=== PATIENT | female | born 1950 | race Caucasian/White ===

== ENCOUNTER 2017-10-04 13:46 | Inpatient (IN) | payer OTHER, MEDICARE ==
[~2017-10-04] VITALS: Ht 160 cm; Wt 72.9 kg
[2017-10-04] MEDS ORDERED: SODIUM CHLORIDE 0.9% 500ML 500 ML IV STA (14:06)
[2017-10-04] MEDS ORDERED: ONDANSETRON INJ 2 MG/ML 2 ML VIAL IV STA ×2 (14:06→15:22)
[2017-10-04] MEDS ORDERED: MoRPHine SULFATE 4 MG/ML 1 ML CARP\\VIAL IV STA ×2 (14:06→15:22)
--- NOTE | 2017-10-04 14:08 | EMERGENCY ROOM VISIT NOTE ---
History Report prepared by Jeffery: Eliu Zurita Under the Supervision of: Dr. Mc Phipps M.D. First contact with patient: 13:52 Chief Complaint: ABDOMINAL PAIN Stated Complaint: SEVERE ABD PAIN History of Present Illness The patient is a 67 year old female who presents to the Emergency Room with complaints of abdominal pain that began last evening. Associated with nausea, vomiting and decreased bowel movement this morning. No fevers, chills, cp, sob , uti symptoms, renal issues nor other symptoms. No falls/injuries. She has history of hysterectomy 20 yrs ago. No previous pain like this. No history of SBO. No history of kidney stones. Denies previous appendectomy nor cholecystectomy. History of dyslipidemia. No medications prior to arrival. Nothing makes better. Sitting up makes worse. Source of History: patient Onset: 2 hours ago Position: abdomen Timing: waxes/wanes Associated Symptoms: + nausea, + vomiting, + abdominal pain Review of Systems See HPI for pertinent positives & negatives. A total of 10 systems reviewed and were otherwise negative. Past Medical & Surgical Medical Problems: (1) Dyslipidemia (2) History of endometrial cancer Surgical Problems: (1) History of hysterectomy (2) Hx of hysterectomy (3) Hx of tubal ligation Social History Smoking Status: Never Smoker Current/Historical Medications Scheduled Calcium Carbonate-Cholecalcife (Caltrate 600+D), 1 TAB PO DAILY Magnesium Oxide (Mag-Ox), 400 MG PO DAILY Melatonin (Melatonin), 1 TAB PO HS Pravastatin Sodium (Pravachol), 40 MG PO DAILY Allergies Coded Allergies: No Known Allergies (Unverified , 10/04/17) Physical Exam Vital Signs Date Time Temp Pulse Resp B/P (MAP) Pulse Ox O2 Delivery O2 Flow Rate FiO2 10/04/17 13:49 36.8 75 16 174/88 97 Room Air Physical Exam GENERAL: Patient is uncomfortable and nauseated appearing and in moderate distress. HEENT: No acute trauma, normocephalic atraumatic, mucous membranes moist, no nasal congestion, no scleral icterus. NECK: No stridor, no adenopathy, no meningismus, trachea is midline. LUNGS: No dyspnea. Clear to auscultation and equal bilaterally. No wheeze, no rhonchi. HEART: Regular rate and rhythm. No murmurs, rubs, gallops appreciated. ABDOMEN: Soft, bowel sounds positive, no masses appreciated, no peritonitis. Tenderness to palpation of bilateral lower abdomen. BACK: No midline tenderness, no CVA tenderness EXTREMITIES: Normal motion all extremities, no cyanosis, no edema. NEUROLOGIC: Alert and oriented, no acute motor or sensory deficits, no focal weakness, cranial nerves grossly intact. SKIN: No rash, no jaundice, no diaphoresis. Medical Decision & Procedures ER Provider Diagnostic Interpretation: Radiology results and stated below per my review and radiologist interpretation: ABDOMEN AND PELVIS CT WITH IV CONTRAST CT DOSE: 718.48 mGycm HISTORY: lower abdominal pain, vomiting TECHNIQUE: Multiaxial CT images of the abdomen and pelvis were performed following the use of intravenous contrast. A dose lowering technique was utilized adhering to the principles of ALARA. COMPARISON STUDY: None. FINDINGS: Linear densities at the left lung base consistent with subsegmental atelectasis. No pneumoperitoneum. No pneumatosis. No fractures within the visualized osseous structures. A 5 mm hypodense lesion within the right hepatic lobe. This is too small to characterize. The gallbladder, spleen, adrenal glands, and pancreas are unremarkable. No hydronephrosis. Calcified plaque throughout the normal caliber abdominal aorta. No retroperitoneal lymphadenopathy. The uterus is surgically absent. Normal bladder. Colonic diverticulosis. Focally distended loop of distal ileum within the right lower quadrant with mild surrounding inflammatory change. Small amount of fluid within the right deep pelvis. Focal high-grade transition of the terminal ileum best seen on image 328. This is likely due to an adhesion and is consistent with a small bowel obstruction. Normal appendix. There may mild thickening of the distal ileal loops on image 263. However, this could be due to decompression. IMPRESSION: Developing small bowel obstruction with the high-grade transition point at the distal ileum, likely due to an adhesion. The distal ileal loop demonstrates mild surrounding inflammatory change and may also demonstrate mild thickening. There is also small amount of fluid within the right lower quadrant. This raises the possibility of vascular compromise. However, there is no pneumatosis. Surgical consultation is advised. Electronically signed by: Josiah Fitzgerald M.D. 10/04/2017 3:27 PM Dictated Date/Time: 10/04/2017 3:13 PM Laboratory Results 10/04/17 14:15 Red Blood Count 4.46, Mean Corpuscular Volume 90.1, Mean Corpuscular Hemoglobin 30.9, Mean Corpuscular Hemoglobin Concent 34.3, Mean Platelet Volume 10.3, Neutrophils (%) (Auto) 89.8, Lymphocytes (%) (Auto) 6.2, Monocytes (%) (Auto) 3.5, Eosinophils (%) (Auto) 0.0, Basophils (%) (Auto) 0.2, Neutrophils # (Auto) 10.71, Lymphocytes # (Auto) 0.74, Monocytes # (Auto) 0.42, Eosinophils # (Auto) 0.00, Basophils # (Auto) 0.02 10/04/17 14:15 Test 10/04/17 14:15 10/04/17 14:30 White Blood Count 11.92 K/uL (4.8-10.8) Red Blood Count 4.46 M/uL (4.2-5.4) Hemoglobin 13.8 g/dL (12.0-16.0) Hematocrit 40.2 % (37-47) Mean Corpuscular Volume 90.1 fL (80-100) Mean Corpuscular Hemoglobin 30.9 pg (25-34) Mean Corpuscular Hemoglobin Concent 34.3 g/dl (32-36) Platelet Count 301 K/uL (130-400) Mean Platelet Volume 10.3 fL (7.4-10.4) Neutrophils (%) (Auto) 89.8 % Lymphocytes (%) (Auto) 6.2 % Monocytes (%) (Auto) 3.5 % Eosinophils (%) (Auto) 0.0 % Basophils (%) (Auto) 0.2 % Neutrophils # (Auto) 10.71 K/uL (1.4-6.5) Lymphocytes # (Auto) 0.74 K/uL (1.2-3.4) Monocytes # (Auto) 0.42 K/uL (0.11-0.59) Eosinophils # (Auto) 0.00 K/uL (0-0.5) Basophils # (Auto) 0.02 K/uL (0-0.2) RDW Standard Deviation 44.3 fL (36.4-46.3) RDW Coefficient of Variation 13.4 % (11.5-14.5) Immature Granulocyte % (Auto) 0.3 % Immature Granulocyte # (Auto) 0.03 K/uL (0.00-0.02) Est Creatinine Clear Calc Drug Dose 65.3 ml/min Estimated GFR () 88.4 Estimated GFR (Non- 76.3 BUN/Creatinine Ratio 16.6 (10-20) Calcium Level 8.9 mg/dl (8.5-10.1) Total Bilirubin 0.3 mg/dl (0.2-1) Direct Bilirubin < 0.1 mg/dl (0-0.2) Aspartate Amino Transf (AST/SGOT) 12 U/L (15-37) Alanine Aminotransferase (ALT/SGPT) 18 U/L (12-78) Alkaline Phosphatase 85 U/L (45-117) Total Protein 7.3 gm/dl (6.4-8.2) Albumin 3.8 gm/dl (3.4-5.0) Lipase 187 U/L (73-393) Bedside Hemoglobin 14.3 g/dl (12.0-16.0) Bedside Hematocrit 42 % (37-47) Bedside Sodium 135 mEq/L (135-144) Bedside Potassium 4.0 mEq/L (3.3-5.0) Bedside Chloride 101 mEq/L (101-112) Bedside Total CO2 24 mEq/l (24-31) Anion Gap 16.0 mmol/L (16-25) Bedside Blood Urea Nitrogen 13 mg/dl (7-18) Bedside Creatinine 0.7 mg/dl (0.6-1.3) Bedside Glucose (other) 132 mg/dl (70-99) Bedside Ionized Calcium (Mago) 1.02 mmol/l (1.12-1.32) Laboratory results as reviewed by me. Medications Administered Medications (Trade) Dose Ordered Sig/[facility] Route Start Time Stop Time Status Last Admin Dose Admin Sodium Chloride 500 ml @ 999 mls/hr Q31M STAT IV 10/04/17 14:06 10/04/17 14:36 DC 10/04/17 14:41 999 MLS/HR Morphine Sulfate (MoRPHine SULFATE INJ) 4 mg NOW STAT IV 10/04/17 14:06 10/04/17 14:08 DC 10/04/17 14:41 4 MG Ondansetron HCl (Zofran Inj) 4 mg NOW STAT IV 10/04/17 14:06 10/04/17 14:08 DC 10/04/17 14:41 4 MG Morphine Sulfate (MoRPHine SULFATE INJ) 4 mg NOW STAT IV 10/04/17 15:22 1/19/18 15:23 DC 10/04/17 16:09 4 MG Ondansetron HCl (Zofran Inj) 4 mg NOW STAT IV 10/04/17 15:22 10/04/17 15:23 DC 10/04/17 16:08 4 MG Lorazepam (Ativan Inj) 0.5 mg NOW STAT IV 10/04/17 15:40 10/04/17 15:41 DC 10/04/17 16:15 0.5 MG ED Course 1352: The patient was evaluated in room B7. A complete history and physical exam was performed. 1523: I checked on the patient and she still feels nausea and pain so I am ordering more morphine and Zofran. 1539: I spoke with Denis MUNOZ and he says that he will evaluate patient and call medicine. 1546: Denis Cruz is by her bedside. 1625: The patient verbally expressed understanding and agreement of the treatment plan. The patient will be evaluated for further treatment. Medical Decision Differential: Diverticulitis, MSK, , UTI, Renal Colic, Bowel Obstruction, Aortic Pathology, amongst other pathologies entertained. 67 yr old female arrives with complaint of lower abdominal pain acutely starting /worsening since midnight last night. Vomiting with only small BM earlier in the day. Persistent pain and nausea though pain not out of proportion to exam. Labs unremarkable. CT reveals obstruction. Gen Surg down to evaluate and feels no need for emergent surgery at this time. NG tube was placed. Medicine to admit and surg to follow along. Patient stable throughout and pain controlled with IV narcotics. Medication Reconcilliation Current Medication List: was personally reviewed by me Blood Pressure Screening Patient's blood pressure: Elevated blood pressure Blood pressure disposition: Elevated BP felt to be situational Consults Time Called: 1537 Consulting Physician: Denis MUNOZ Returned Call: 1539 I spoke with Denis MUNOZ and he says that he will evaluate patient and call medicine. Impression Primary Impression: Small bowel obstruction Additional Impression: Intra-abdominal fluid Scribe Attestation The scribe's documentation has been prepared under my direction and personally reviewed by me in its entirety. I confirm that the note above accurately reflects all work, treatment, procedures, and medical decision making performed by me. Departure Information Dispostion Being Evaluated By Hospitalist Referrals Miquel Wolf D.O. (PCP) Patient Instructions My [facility] Problem Qualifiers
[2017-10-04] MEDS ORDERED: OPTIRAY 320 IV PRN (14:15)
[2017-10-04] MEDS ORDERED: MELA1TAB5 PO (14:24)
[2017-10-04] MEDS ORDERED: PRAV40TA PO (14:24)
[2017-10-04] MEDS ORDERED: MAGN400T6 PO (14:24)
[2017-10-04] MEDS ORDERED: CALC-354 PO (14:24)
[2017-10-04 14:38] LABS: BASO % 0.2 %; BASO ABS # 0.02 K/uL (0-0.2); HEMATOCRIT 40.2 % (37-47); HEMOGLOBIN 13.8 g/dL (12.0-16.0); IG# 0.03 K/uL (0.00-0.02); LYMPH % 6.2 %; LYMPH ABS # 0.74 K/uL (1.2-3.4); MEAN CELL VOLUME 90.1 fL (80-100); MEAN CORPUSCULAR HEMOGLOBIN 30.9 pg (25-34); MEAN CORPUSCULAR HGB CONC 34.3 g/dl (32-36); MEAN PLATELET VOLUME 10.3 fL (7.4-10.4); MONO % 3.5 %; MONO ABS # 0.42 K/uL (0.11-0.59); NEUT % 89.8 %; NEUT ABS # 10.71 K/uL (1.4-6.5); PLATELET COUNT 301 K/uL (130-400); RED CELL DISTRIBUTION WIDTH CV 13.4 % (11.5-14.5); RED CELL DISTRIBUTION WIDTH SD 44.3 fL (36.4-46.3); WHITE BLOOD COUNT 11.92 K/uL (4.8-10.8)
[2017-10-04 14:58] LABS: ALBUMIN 3.8 gm/dl (3.4-5.0); ALT/SGPT 18 U/L (12-78); AST/SGOT 12 U/L (15-37); BLOOD UREA NITROGEN 13 mg/dl (7-18); CALCIUM 8.9 mg/dl (8.5-10.1); CARBON DIOXIDE 27 mmol/L (21-32); GLUCOSE 132 mg/dl (70-99); LIPASE 187 U/L (73-393); POTASSIUM 3.8 mmol/L (3.5-5.1); SODIUM 134 mmol/L (136-145)
[2017-10-04 15:00] LABS: ALKALINE PHOSPHATASE 85 U/L (45-117); TOTAL PROTEIN 7.3 gm/dl (6.4-8.2)
--- NOTE | 2017-10-04 15:28 | DIAGNOSTIC IMAGING REPORT ---
ABDOMEN AND PELVIS CT WITH IV CONTRAST CT DOSE: 718.48 mGycm HISTORY: lower abdominal pain, vomiting TECHNIQUE: Multiaxial CT images of the abdomen and pelvis were performed following the use of intravenous contrast. A dose lowering technique was utilized adhering to the principles of ALARA. COMPARISON STUDY: None. FINDINGS: Linear densities at the left lung base consistent with subsegmental atelectasis. No pneumoperitoneum. No pneumatosis. No fractures within the visualized osseous structures. A 5 mm hypodense lesion within the right hepatic lobe. This is too small to characterize. The gallbladder, spleen, adrenal glands, and pancreas are unremarkable. No hydronephrosis. Calcified plaque throughout the normal caliber abdominal aorta. No retroperitoneal lymphadenopathy. The uterus is surgically absent. Normal bladder. Colonic diverticulosis. Focally distended loop of distal ileum within the right lower quadrant with mild surrounding inflammatory change. Small amount of fluid within the right deep pelvis. Focal high-grade transition of the terminal ileum best seen on image 328. This is likely due to an adhesion and is consistent with a small bowel obstruction. Normal appendix. There may mild thickening of the distal ileal loops on image 263. However, this could be due to decompression. IMPRESSION: Developing small bowel obstruction with the high-grade transition point at the distal ileum, likely due to an adhesion. The distal ileal loop demonstrates mild surrounding inflammatory change and may also demonstrate mild thickening. There is also small amount of fluid within the right lower quadrant. This raises the possibility of vascular compromise. However, there is no pneumatosis. Surgical consultation is advised. Electronically signed by: Josiah Fitzgerald M.D. 10/04/2017 3:27 PM Dictated Date/Time: 10/04/2017 3:13 PM
[2017-10-04] MEDS ORDERED: LORAZEPAM 2 MG/ML 1 ML VIAL IV STA (15:40)
--- NOTE | 2017-10-04 16:25 | Medical Consult ---
Consultation Date of Consultation: Oct 04, 2017. Attending Physician: History of Present Illness 67 y/o female came to the ED this afternoon for abdominal pain, nausea and several episodes of vomiting that began last night a little after midnight. She felt fine when she went to bed, she had a normal dinner. No previous bowel obstructions. Her discomfort waxes and wanes but has been present throughout the day. She was worried about getting the flu. She has not had any vomiting in several hours. She had formed BM this AM, does not recall any flatus today. Had hysterectomy 20 years ago for endometrial cancer. Past Medical/Surgical History Medical Problems: (1) Small bowel obstruction Status: Acute 2) high cholesterol Surgical: 1. lap tubal 2. hysterectomy 3. wisdom teeth Social History Smoking Status: Never Smoker Occupation Status: employed Allergies Coded Allergies: No Known Allergies (Unverified , 10/04/17) Current Inpatient Medications Current Inpatient Medications Medications (Trade) Dose Ordered Sig/[facility] Route Start Time Stop Time Status Last Admin Dose Admin Ioversol (Optiray 320) 100 ml UD PRN IV 10/04/17 14:15 10/08/17 14:14 Review of Systems Constitutional: No fever, No chills ENT: + problem reported (h/o nasal fx) Abdomen: + pain, + nausea, + vomiting, No diarrhea, No constipation Physical Exam Date Time Temp Pulse Resp B/P (MAP) Pulse Ox O2 Delivery O2 Flow Rate FiO2 10/04/17 13:49 36.8 75 16 174/88 97 Room Air General Appearance: WD/WN, no apparent distress Respiratory/Chest: lungs clear, normal breath sounds Cardiovascular: regular rate, rhythm, no edema Abdomen/GI: soft, + tenderness (mild periumbilical to RLQ), + distended ( minimal) Neurologic/Psych: alert, normal mood/affect Skin: normal color, warm/dry Laboratory Results Last 24 Hours Test 10/04/17 14:15 10/04/17 16:02 White Blood Count 11.92 K/uL Red Blood Count 4.46 M/uL Hemoglobin 13.8 g/dL Hematocrit 40.2 % Mean Corpuscular Volume 90.1 fL Mean Corpuscular Hemoglobin 30.9 pg Mean Corpuscular Hemoglobin Concent 34.3 g/dl Platelet Count 301 K/uL Mean Platelet Volume 10.3 fL Neutrophils (%) (Auto) 89.8 % Lymphocytes (%) (Auto) 6.2 % Monocytes (%) (Auto) 3.5 % Eosinophils (%) (Auto) 0.0 % Basophils (%) (Auto) 0.2 % Neutrophils # (Auto) 10.71 K/uL Lymphocytes # (Auto) 0.74 K/uL Monocytes # (Auto) 0.42 K/uL Eosinophils # (Auto) 0.00 K/uL Basophils # (Auto) 0.02 K/uL RDW Standard Deviation 44.3 fL RDW Coefficient of Variation 13.4 % Immature Granulocyte % (Auto) 0.3 % Immature Granulocyte # (Auto) 0.03 K/uL Sodium Level 134 mmol/L Potassium Level 3.8 mmol/L Chloride Level 101 mmol/L Carbon Dioxide Level 27 mmol/L Anion Gap 6.0 mmol/L Blood Urea Nitrogen 13 mg/dl Creatinine 0.80 mg/dl Est Creatinine Clear Calc Drug Dose 65.3 ml/min Estimated GFR () 88.4 Estimated GFR (Non- 76.3 BUN/Creatinine Ratio 16.6 Random Glucose 132 mg/dl Calcium Level 8.9 mg/dl Total Bilirubin 0.3 mg/dl Direct Bilirubin < 0.1 mg/dl Aspartate Amino Transf (AST/SGOT) 12 U/L Alanine Aminotransferase (ALT/SGPT) 18 U/L Alkaline Phosphatase 85 U/L Total Protein 7.3 gm/dl Albumin 3.8 gm/dl Lipase 187 U/L ABDOMEN AND PELVIS CT WITH IV CONTRAST CT DOSE: 718.48 mGycm HISTORY: lower abdominal pain, vomiting TECHNIQUE: Multiaxial CT images of the abdomen and pelvis were performed following the use of intravenous contrast. A dose lowering technique was utilized adhering to the principles of ALARA. COMPARISON STUDY: None. FINDINGS: Linear densities at the left lung base consistent with subsegmental atelectasis. No pneumoperitoneum. No pneumatosis. No fractures within the visualized osseous structures. A 5 mm hypodense lesion within the right hepatic lobe. This is too small to characterize. The gallbladder, spleen, adrenal glands, and pancreas are unremarkable. No hydronephrosis. Calcified plaque throughout the normal caliber abdominal aorta. No retroperitoneal lymphadenopathy. The uterus is surgically absent. Normal bladder. Colonic diverticulosis. Focally distended loop of distal ileum within the right lower quadrant with mild surrounding inflammatory change. Small amount of fluid within the right deep pelvis. Focal high-grade transition of the terminal ileum best seen on image 328. This is likely due to an adhesion and is consistent with a small bowel obstruction. Normal appendix. There may mild thickening of the distal ileal loops on image 263. However, this could be due to decompression. IMPRESSION: Developing small bowel obstruction with the high-grade transition point at the distal ileum, likely due to an adhesion. The distal ileal loop demonstrates mild surrounding inflammatory change and may also demonstrate mild thickening. There is also small amount of fluid within the right lower quadrant. This raises the possibility of vascular compromise. However, there is no pneumatosis. Surgical consultation is advised. Electronically signed by: Josiah Fitzgerald M.D. 10/04/2017 3:27 PM Dictated Date/Time: 10/04/2017 3:13 PM Assessment & Plan Small bowel obstruction CT interpretation is concerning but her clinical condition does not appear acute. She is not tachycardic, her abdominal exam is benign. NG tube is being placed. Lactic acid is pending. She is being admitted by [facility], we will continue to follow her closely.
[2017-10-04 16:44] LABS: ISTAT CREATININE 0.7 mg/dl (0.6-1.3); ISTAT IONIZED CALCIUM 1.02 mmol/l (1.12-1.32)
[2017-10-04] MEDS ORDERED: POLYETHYLENE (MIRALAX) 17 GM PACK PO PRN (16:45)
[2017-10-04] MEDS ORDERED: MoRPHine SULFATE 2 MG/ML CARP IV PRN (17:00)
[2017-10-04] MEDS ORDERED: SODIUM CHLORIDE 0.9% 1000ML 1,000 ML IV SCH (17:00)
[2017-10-04] MEDS ORDERED: MELA1TAB54 PO (17:02)
--- NOTE | 2017-10-04 17:19 | DIAGNOSTIC IMAGING REPORT ---
KUB HISTORY: Status post placement of an enteric tube NG tube placement. Acute vomiting. COMPARISON: CT abdomen and pelvis of same day at 3:11 PM FINDINGS: Enteric tube has been placed with distal tip in the right upper abdomen, likely within the region of the distal gastric lumen. Side-port is within the region of the mid gastric body. Previously discussed dilated loops of small bowel within the lower abdomen are better seen on comparison CT. No pneumoperitoneum identified. Retained contrast is seen within the kidneys, bladder and collecting systems. Degenerative changes are seen within the lower lumbar spine. Dense atherosclerosis of the aorta. IMPRESSION: 1. Enteric tube terminates within the right upper abdomen likely within the expected region of the distal gastric lumen. 2. Dilated small bowel of the lower abdomen better seen on comparison CT of same day. 3. No pneumoperitoneum. Electronically signed by: Aris Mays M.D. 10/04/2017 5:18 PM Dictated Date/Time: 10/04/2017 5:16 PM
--- NOTE | 2017-10-04 17:34 | History and Physical ---
History & Physical Date & Time of Service: Oct 04, 2017 at 16:38 Chief Complaint: Severe Abd Pain Primary Care Physician: Miquel Wolf D.O. History of Present Illness Source: patient, family, hospital records Pt is 67 y/o F with PMH dyslipidemia, endometrial CA s/p hysterectomy presented to ER with c/o abdominal pain, N/V started last night. States ate dinner last night and then later developed lower abdominal aching, nausea and couple episodes of vomiting. [place] chilled last evening. Had soft formed BM this am. No prior treatment. Denies hx bowel obstruction in past. Hx hysterectomy and tubal ligation. Denies fever, diaphoresis, hematochezia, melena, hematemesis, S[place], dizziness, syncope, vision changes, neck pain, CP, SOB, orthopnea, palpitations , cough, sore throat, choking, otalgia, rhinorrhea, paresthesias, weakness, extremity weakness, extremity edema, rashes, urinary symptoms. In ER pt afebrile, P: 75, R: 16, BP: 174/88, 97% on RA. WBC: 11.9, Na: 134. pending lactic acid, pending co-ags. CT abd/pelvis: Developing small bowel obstruction with the high-grade transition point at the distal ileum. The distal ileal loop demonstrates mild surrounding inflammatory change, small amount of fluid within the right lower quadrant. Pt given morphine 4mg x 2 doses, zofran 4mg x 2 doses, ativan. NG tube placed. Surgery consulted Past Medical/Surgical History Medical Problems: (1) Dyslipidemia Status: Chronic Surgical Problems: (1) History of hysterectomy Status: Resolved (2) Hx of hysterectomy Status: Resolved (3) Hx of tubal ligation Status: Resolved Family History Diabetes mellitus FH: CHF (congestive heart failure) FH: prostate cancer Hypertension Social History Smoking Status: Never Smoker Smokeless Tobacco Use: No Alcohol Use: none Drug Use: none Housing status: lives with family Occupational Status: employed Allergies Coded Allergies: No Known Allergies (Unverified , 10/04/17) Home Medications Scheduled Calcium Carbonate-Cholecalcife (Caltrate 600+D), 1 TAB PO DAILY Magnesium Oxide (Mag-Ox), 400 MG PO DAILY Melatonin (Melatonin), 1 TAB PO HS Pravastatin Sodium (Pravachol), 40 MG PO DAILY Review of Systems Constitutional: No weight loss Eyes: No eye pain, No redness, No discharge ENT: No unusual epistaxis, No trouble swallowing Respiratory: No sputum, No wheezing, No hemoptysis Cardiovascular: No orthopnea, No PND, No edema Abdomen: + problem reported (see HPI) Musculoskeletal: No joint pain, No muscle pain, No swelling, No calf pain Genitourinary - Female: No dysuria, No urinary frequency, No urinary urgency, No urinary retention, No hematuria Neurologic: No weakness, No numbness/tingling, No vertigo Psychiatric: No depression symptoms, No anxiety Endocrine: No fatigue, No excessive thirst, No excessive urination Hematologic / Lymphatic: No abnormal bleeding/bruising, No clotting problems, No night sweats Integumentary: No rash, No itch Physical Exam Vital Signs Date Time Temp Pulse Resp B/P (MAP) Pulse Ox O2 Delivery O2 Flow Rate FiO2 10/04/17 16:34 84 16 167/87 97 Room Air 10/04/17 13:49 36.8 75 16 174/88 97 Room Air General Appearance: WD/WN, no apparent distress Head: normocephalic, atraumatic Eyes: normal inspection, PERRL, EOMI, sclerae normal ENT: hearing grossly normal, pharynx normal, + pertinent finding (mucous membranes moist) Neck: supple, no JVD, trachea midline Respiratory/Chest: chest non-tender, lungs clear, normal breath sounds, no respiratory distress, no accessory muscle use Cardiovascular: regular rate, rhythm, no edema, no murmur, normal peripheral pulses Abdomen/GI: soft, + pertinent finding (quiet hypoactive BS, mild tenderness to palpation across entire lower abdomen without rebound or guarding) Back: no CVA tenderness Extremities/Musculoskelatal: normal inspection, normal capillary refill, no pedal edema, normal range of motion, non-tender Neurologic/Psych: alert, normal mood/affect, oriented x 3 Skin: normal color, warm/dry, no rash Diagnostics Laboratory Results Results Past 24 Hours Test 10/04/17 14:15 10/04/17 16:02 Range/Units White Blood Count 11.92 4.8-10.8 K/uL Red Blood Count 4.46 4.2-5.4 M/uL Hemoglobin 13.8 12.0-16.0 g/dL Hematocrit 40.2 37-47 % Mean Corpuscular Volume 90.1 80-100 fL Mean Corpuscular Hemoglobin 30.9 25-34 pg Mean Corpuscular Hemoglobin Concent 34.3 32-36 g/dl Platelet Count 301 130-400 K/uL Mean Platelet Volume 10.3 7.4-10.4 fL Neutrophils (%) (Auto) 89.8 % Lymphocytes (%) (Auto) 6.2 % Monocytes (%) (Auto) 3.5 % Eosinophils (%) (Auto) 0.0 % Basophils (%) (Auto) 0.2 % Neutrophils # (Auto) 10.71 1.4-6.5 K/uL Lymphocytes # (Auto) 0.74 1.2-3.4 K/uL Monocytes # (Auto) 0.42 0.11-0.59 K/uL Eosinophils # (Auto) 0.00 0-0.5 K/uL Basophils # (Auto) 0.02 0-0.2 K/uL RDW Standard Deviation 44.3 36.4-46.3 fL RDW Coefficient of Variation 13.4 11.5-14.5 % Immature Granulocyte % (Auto) 0.3 % Immature Granulocyte # (Auto) 0.03 0.00-0.02 K/uL Sodium Level 134 136-145 mmol/L Potassium Level 3.8 3.5-5.1 mmol/L Chloride Level 101 98-107 mmol/L Carbon Dioxide Level 27 21-32 mmol/L Anion Gap 6.0 3-11 mmol/L Blood Urea Nitrogen 13 7-18 mg/dl Creatinine 0.80 0.60-1.20 mg/dl Est Creatinine Clear Calc Drug Dose 65.3 ml/min Estimated GFR () 88.4 Estimated GFR (Non- 76.3 BUN/Creatinine Ratio 16.6 10-20 Random Glucose 132 70-99 mg/dl Calcium Level 8.9 8.5-10.1 mg/dl Total Bilirubin 0.3 0.2-1 mg/dl Direct Bilirubin < 0.1 0-0.2 mg/dl Aspartate Amino Transf (AST/SGOT) 12 15-37 U/L Alanine Aminotransferase (ALT/SGPT) 18 12-78 U/L Alkaline Phosphatase 85 45-117 U/L Total Protein 7.3 6.4-8.2 gm/dl Albumin 3.8 3.4-5.0 gm/dl Lipase 187 73-393 U/L Diagnostic Radiology CT ABD/PELVIS: Developing small bowel obstruction with the high-grade transition point at the distal ileum, likely due to an adhesion. The distal ileal loop demonstrates mild surrounding inflammatory change and may also demonstrate mild thickening. There is also small amount of fluid within the right lower quadrant. This raises the possibility of vascular compromise. However, there is no pneumatosis. Surgical consultation is advised. KUB: IMPRESSION: 1. Enteric tube terminates within the right upper abdomen likely within the expected region of the distal gastric lumen. 2. Dilated small bowel of the lower abdomen better seen on comparison CT of same day. 3. No pneumoperitoneum. EKG EKG: NSR, rate 83, no ST elevations noted EKG read by crushing machine operator: Normal sinus rhythm Low voltage QRS Nonspecific T wave abnormality Abnormal ECG No previous ECGs available Confirmed by BJ DANG ([id number]) on 10/04/2017 5:09:41 PM Impression Assessment and Plan ABDOMINAL PAIN, N/V SECONDARY TO SBO Pt with onset N/V, abdominal discomfort last evening. In ER pt afebrile. WBC: 11.9.Normal lactic acid. CT ABD/PELVIS: Developing small bowel obstruction with the high-grade transition point at the distal ileum, likely due to an adhesion. The distal ileal loop demonstrates mild surrounding inflammatory change and may also demonstrate mild thickening. There is also small amount of fluid within the right lower quadrant. This raises the possibility of vascular compromise. However, there is no pneumatosis. Surgical consultation is advised. NG tube was placed and KUB to confirm tube placement ordered. surgery consulted. Pt given morphine, zofran in ER with moderate relief. -pending U/A -npo -IVF -morphine 2mg IV Q2H prn pain -zofran 4mg IV prn nausea -general surgery consulted HYPONATREMIA Na: 134 -IVF -continue to monitor HX HYPOMAGNESIA -magnesium lab ordered -holding po magnesium currently DYSLIPIDEMIA On pravastatin. Holding pravastatin currently. DVT PROPHYLAXIS -SCD's DISPOSITION -admit med/surg -Full Code as per discussion with pt -Follows with Dr Wolf for routine care Pt was seen with Dr Ha. See addendum Agree with above h and p. Briefly [id number] presents with severe abdominal pain and nausea and vomiting starting last night. HAd bowel movement today morning.After placement of NG tube symptoms improved. Afebrile. No chest pain or sob. Hemodynamics stable. p/e Ge Not in distress Cvs s1 and s2 heard regular no murmurs Rs cta b/l no added sounds Abd soft bowel sounds very sluggish mild diffuse discomfort no distension Application Development Intern non focal Ext no edema a/p SBO possible from adhesions questionable vascular compromise lactic acid normal on NG tube, npo, iv fluids iv antiemetics and pain meds prn surgery consulted close monitor Hyponatremia on fluids f/u labs Level of Care Med/Surg Advanced Directives Existing Living Will: No Resuscitation Status FULL RESUSCITATION VTE Prophylaxis VTE Risk Assessment Done? Y/N: Yes Risk Level: Moderate Given or contraindicated: SCD's Additional Copies To Miquel Wolf D.O.
[2017-10-04 18:07] VITALS: O2SAT 95
[2017-10-04 18:25] VITALS: BP 164/86; PULSE 75; TEMP 37; O2SAT 95
[2017-10-04 18:30] VITALS: BP 164/86; PULSE 75; TEMP 37; Ht 160 cm; Wt 72.9 kg
[2017-10-04 18:46] LABS: PTT PATIENT 27.1 SECONDS (21.0-31.0)
[2017-10-04] MEDS: D5W AND NSS 1,000 ML IV SCH (19:03)
[2017-10-04 23:52] VITALS: BP 146/80; PULSE 80; TEMP 36.7; O2SAT 94
[2017-10-05] VITALS (7 sets, daily range): BP systolic 137–158; BP diastolic 71–79; PULSE 64–103; TEMP 36.6–37.3; O2SAT 91–96
[2017-10-05] MEDS: D5W AND NSS 1,000 ML IV SCH (02:41)
[2017-10-05] MEDS: ONDANSETRON INJ 2 MG/ML 2 ML VIAL IV PRN ×2 (02:46→09:02)
[2017-10-05 08:00] LABS: HEMATOCRIT 38.1 % (37-47); HEMOGLOBIN 12.6 g/dL (12.0-16.0); MEAN CELL VOLUME 91.4 fL (80-100); MEAN CORPUSCULAR HEMOGLOBIN 30.2 pg (25-34); MEAN CORPUSCULAR HGB CONC 33.1 g/dl (32-36); MEAN PLATELET VOLUME 10.1 fL (7.4-10.4); PLATELET COUNT 290 K/uL (130-400); RED CELL DISTRIBUTION WIDTH CV 13.8 % (11.5-14.5); RED CELL DISTRIBUTION WIDTH SD 45.8 fL (36.4-46.3); WHITE BLOOD COUNT 10.78 K/uL (4.8-10.8)
[2017-10-05 08:28] LABS: CALCIUM 8.3 mg/dl (8.5-10.1); CREATININE 0.73 mg/dl (0.60-1.20); POTASSIUM 3.6 mmol/L (3.5-5.1)
[2017-10-05] MEDS ORDERED: ATROPINE SULFATE 0.1 MG/ML 5ML SYR IV PRN (08:30)
[2017-10-05] MEDS ORDERED: EpHEDrine SULFATE INJ 50 MG/ML AMP IV PRN (08:30)
[2017-10-05] MEDS ORDERED: ONDANSETRON INJ 2 MG/ML 2 ML VIAL IV PRN ×2 (08:30→11:45)
[2017-10-05] MEDS ORDERED: HYDROmorphone INJ 1 MG/ML SYR IV PRN (08:30)
[2017-10-05] MEDS ORDERED: MEPERIDINE HCL 25 MG/ML CARP IV PRN (08:30)
[2017-10-05] MEDS ORDERED: FENTANYL CITRATE INJ 50 MCG/1 ML 2 ML VIAL IV PRN (08:30)
[2017-10-05] MEDS ORDERED: LABETALOL HCL IV 5 MG/ML 20ML IV PRN (08:30)
--- NOTE | 2017-10-05 09:48 | Surgery Progress Note ---
Surgery Progress Note Date of Service Oct 05, 2017. Subjective pt continuing to have RLQ pain requiring iv narcotics. "comes in waves" . first episode . +nausea at times. Objective Vital Signs: Date Time Temp Pulse Resp B/P (MAP) Pulse Ox O2 Delivery O2 Flow Rate FiO2 10/05/17 08:33 36.6 72 18 158/78 (104) 96 Room Air 10/05/17 00:00 Room Air 10/04/17 23:52 36.7 80 16 146/80 (102) 94 Room Air 10/04/17 18:30 37.0 75 16 164/86 Room Air 10/04/17 18:25 37.0 75 16 164/86 (112) 95 Room Air 10/04/17 18:07 36.8 84 16 132/79 95 10/04/17 17:57 84 16 132/79 95 Room Air 10/04/17 16:34 84 16 167/87 97 Room Air 10/04/17 13:49 36.8 75 16 174/88 97 Room Air General Appearance: WD/WN, no apparent distress Head: normocephalic Respiratory/Chest: no respiratory distress, no accessory muscle use Abdomen: soft, + tenderness Extremities: normal inspection Laboratory Results: Results Past 24 Hours Test 10/04/17 14:15 10/04/17 14:30 10/04/17 17:03 10/05/17 07:35 Range/Units White Blood Count 11.92 10.78 4.8-10.8 K/uL Red Blood Count 4.46 4.17 4.2-5.4 M/uL Hemoglobin 13.8 12.6 12.0-16.0 g/dL Hematocrit 40.2 38.1 37-47 % Mean Corpuscular Volume 90.1 91.4 80-100 fL Mean Corpuscular Hemoglobin 30.9 30.2 25-34 pg Mean Corpuscular Hemoglobin Concent 34.3 33.1 32-36 g/dl Platelet Count 301 290 130-400 K/uL Mean Platelet Volume 10.3 10.1 7.4-10.4 fL Neutrophils (%) (Auto) 89.8 % Lymphocytes (%) (Auto) 6.2 % Monocytes (%) (Auto) 3.5 % Eosinophils (%) (Auto) 0.0 % Basophils (%) (Auto) 0.2 % Neutrophils # (Auto) 10.71 1.4-6.5 K/uL Lymphocytes # (Auto) 0.74 1.2-3.4 K/uL Monocytes # (Auto) 0.42 0.11-0.59 K/uL Eosinophils # (Auto) 0.00 0-0.5 K/uL Basophils # (Auto) 0.02 0-0.2 K/uL RDW Standard Deviation 44.3 45.8 36.4-46.3 fL RDW Coefficient of Variation 13.4 13.8 11.5-14.5 % Immature Granulocyte % (Auto) 0.3 % Immature Granulocyte # (Auto) 0.03 0.00-0.02 K/uL Prothrombin Time 10.1 9.0-12.0 SECONDS Prothromb Time International Ratio 1.0 0.9-1.1 Activated Partial Thromboplast Time 27.1 21.0-31.0 SECONDS Partial Thromboplastin Ratio 1.0 Sodium Level 134 139 136-145 mmol/L Potassium Level 3.8 3.6 3.5-5.1 mmol/L Chloride Level 101 104 98-107 mmol/L Carbon Dioxide Level 27 27 21-32 mmol/L Anion Gap 6.0 16.0 8.0 3-11 mmol/L Blood Urea Nitrogen 13 12 7-18 mg/dl Creatinine 0.80 0.73 0.60-1.20 mg/dl Est Creatinine Clear Calc Drug Dose 65.3 71.5 ml/min Estimated GFR () 88.4 98.8 Estimated GFR (Non- 76.3 85.2 BUN/Creatinine Ratio 16.6 16.6 10-20 Random Glucose 132 122 70-99 mg/dl Calcium Level 8.9 8.3 8.5-10.1 mg/dl Magnesium Level 2.0 1.8-2.4 mg/dl Total Bilirubin 0.3 0.3 0.2-1 mg/dl Direct Bilirubin < 0.1 0-0.2 mg/dl Aspartate Amino Transf (AST/SGOT) 12 10 15-37 U/L Alanine Aminotransferase (ALT/SGPT) 18 14 12-78 U/L Alkaline Phosphatase 85 61 45-117 U/L Total Protein 7.3 6.0 6.4-8.2 gm/dl Albumin 3.8 3.0 3.4-5.0 gm/dl Lipase 187 73-393 U/L Bedside Hemoglobin 14.3 12.0-16.0 g/dl Bedside Hematocrit 42 37-47 % Bedside Sodium 135 135-144 mEq/L Bedside Potassium 4.0 3.3-5.0 mEq/L Bedside Chloride 101 101-112 mEq/L Bedside Total CO2 24 24-31 mEq/l Bedside Blood Urea Nitrogen 13 7-18 mg/dl Bedside Creatinine 0.7 0.6-1.3 mg/dl Bedside Glucose (other) 132 70-99 mg/dl Bedside Ionized Calcium (Mago) 1.02 1.12-1.32 mmol/l Lactic Acid Level 1.0 0.4-2.0 mmol/L Globulin 3.0 2.5-4.0 gm/dl Albumin/Globulin Ratio 1.0 0.9-2 Hepatitis C Antibody Screen NEG NEG Assessment & Plan 10/05/17 pt acute onset, pain persists ct shows acute transition discussed options, conservative vs operative and pros/cons of each will proceed with dx laparoscopy, possible open, ZAVALETA today. discussed risks ( bleeding/infection/dvt/pe/mi/injury to another organ etc...) questions answered. will proceed this AM.
[2017-10-05] MEDS ORDERED: ONDANSETRON INJ 2 MG/ML 2 ML VIAL ONE (10:00)
[2017-10-05] MEDS ORDERED: FENTANYL CITRATE INJ 50 MCG/1 ML 2 ML VIAL ONE (10:00)
[2017-10-05] MEDS ORDERED: DEXAMETHASONE SOD INJ 4 MG/ML VIAL ONE (10:00)
[2017-10-05] MEDS ORDERED: MIDAZOLAM HCL 1 MG/ML 2ML VIAL ONE (10:00)
[2017-10-05] MEDS ORDERED: PROPOFOL IV EMULSION 10 MG/ML 20 ML VIAL IV ONE (10:00)
[2017-10-05] MEDS ORDERED: GLYCOPYRROLATE INJ 0.2 MG/ML VIAL ONE ×2 (10:00→11:18)
[2017-10-05] MEDS ORDERED: NEOSTIGMINE METHYLSULFATE 5 MG/5 ML SYR ONE (10:00)
[2017-10-05] MEDS ORDERED: LIDOCAINE HCL 2% 2 ML VIAL (20MG/ML) ONE (10:00)
--- NOTE | 2017-10-05 10:29 | History & Physical Bridge Note ---
H&P Re-Evaluation Bridge Note: I have examined the patient, reviewed the History & Physical and in the interval since the performance of the History & Physical I have noted the following changes of clinical significance: No changes noted
[2017-10-05] MEDS ORDERED: BUPIVACAINE/EPINEPHRINE 0.5% MPF 1:200,000 30 ML VIAL ONE (10:40)
[2017-10-05] MEDS ORDERED: CEFAZOLIN SOD 1 GM VIAL ONE (10:44)
[2017-10-05] MEDS ORDERED: ROCURONIUM BROMIDE 10 MG/ML 5 ML VIAL IV ONE (11:27)
--- NOTE | 2017-10-05 11:30 | [facility] Operative Report ---
Operative Report Operative Date Oct 05, 2017. Pre-Operative Diagnosis Developing Small Bowel Obstruction Post-Operative Diagnosis Small Bowel Obstruction, Adhesions and Appendicitis Procedure(s) Performed Laparoscopy, Release of Small Bowel Obstruction, Enterolysis, Appendectomy Surgeon Dr. Mcdonnell Commercial Decorator Surgeon(s) Sindi Dumont PA-C Estimated Blood Loss 10 cc Findings adhesions; sbo with obstruction of appendix; appendicitis Specimens A: Appendix Anesthesia get Complication(s) None Disposition Recovery Room / PACU Description of Procedure After informed consent was obtained the patient was taken the operating room and placed in a supine position. After successful intubation a Woods catheter was placed and the abdomen was sterilely prepped and draped in usual fashion. A supra umbilical incision was made with 11 blade scalpel and carried down through the soft tissue using electrocautery. The anterior rectus fascia was opened using electrocautery and 2 #0 Vicryl stay sutures were placed. Peritoneum was elevated with hemostats and incised under direct vision using a Metzenbaum scissor. A finger sweep was performed and a 12 mm Bell trocar was placed. The abdomen was insufflated to 18 mmHg. Laparoscope was inserted and we immediately encountered some adhesions primarily in the mid abdomen. We are able to place a left lower quadrant 12 mm trocar and left midabdominal 5 mm trocar. We began by using the Harmonic scalpel through different ports to take down these adhesions. The involved omentum primarily but also some small bowel. After we had all the adhesions down we were then able to evaluate the site of her pain which is in the right lower quadrant. It was a very interesting finding. There was a piece of small bowel that was adhesed to the right lower quadrant sidewall causing both a partial small bowel obstruction but it was also obstructing the appendix. The appendix was ischemic and inflamed. I was able to take a sharp scissor and lyse the adhesion which released the small bowel obstruction but also released the compression of the appendix. I was able to free up the appendix. It almost appeared to be infarcted and would clearly need to be removed. We used a SUMIT 60 mm Brown cartridge to transect both the meso-appendix as well as the appendix itself at its base with the cecum. It was placed into an Endo Catch bag and removed. The staple line looked good and there was adequate hemostasis. We did run the small bowel backwards for several feet and it was completely normal. Small and large bowel stomach gallbladder liver etc. all appeared grossly normal with no other gross abnormalities. The trochars were all removed and the abdomen was desufflated. The fascia of the camera port was closed using 0 Vicryl figure-of- eight fashion. All wounds were irrigated and closed using 4-0 Monocryl. Marcaine was injected around them for postoperative analgesia and skin glue used as a dressing. The patient was awakened extubated and transferred to recovery in stable condition. My physician's cosmetic sales assistant was present throughout the entire case. She helped prepped the patient. Help with exposure for trocar placement. She helped the run the camera for me as well as retract when needed. She also helped with wound closure and dressing placement I attest to the content of the Intraoperative Record and any orders documented therein. Any exceptions are noted below.
[2017-10-05] MEDS ORDERED: MoRPHine SULFATE 4 MG/ML 1 ML CARP\\VIAL IV PRN (11:45)
[2017-10-05] MEDS ORDERED: MoRPHine SULFATE 2 MG/ML CARP IV PRN ×2 (11:45)
[2017-10-05] MEDS ORDERED: HYDROCODONE/ACETAMOPHEN 5/325MG TAB PO PRN ×2 (11:45)
--- NOTE | 2017-10-05 11:57 | Medical Consult ---
Consultation Date of Consultation: Oct 05, 2017. Attending Physician: Dao Garcia M.D. Reason for Consultation: small bowel obstruction History of Present Illness Presented to ER with abdominal pain, wavy in nature. Ct shows transition is the distal ileum Past Medical/Surgical History Medical Problems: (1) Intra-abdominal fluid Status: Acute (2) Small bowel obstruction Status: Acute Family History Diabetes mellitus FH: CHF (congestive heart failure) FH: prostate cancer Hypertension Social History Smoking Status: Never Smoker Smokeless Tobacco Use: No Alcohol Use: none Drug Use: none Occupation Status: employed Allergies Coded Allergies: No Known Allergies (Unverified , 10/04/17) Current Inpatient Medications Current Inpatient Medications Medications (Trade) Dose Ordered Sig/Gareth Route Start Time Stop Time Status Last Admin Dose Admin Ioversol (Optiray 320) 100 ml UD PRN IV 10/04/17 14:15 10/08/17 14:14 Acetaminophen (Tylenol Tab) 650 mg Q4H PRN PO 10/04/17 16:45 11/03/17 16:44 Polyethylene (Miralax Powder Packet) 17 gm DAILY PRN PO 10/04/17 16:45 11/03/17 16:44 Ondansetron HCl (Zofran Inj) 4 mg Q6H PRN IV 10/04/17 16:45 11/03/17 16:44 10/05/17 09:02 4 MG Morphine Sulfate (MoRPHine SULFATE INJ) 2 mg Q2HWA PRN IV 10/04/17 17:00 10/18/17 16:59 10/05/17 02:41 2 MG Dextrose/Sodium Chloride 1,000 ml @ 125 mls/hr Q8H IV 10/04/17 18:45 11/03/17 18:44 10/05/17 02:41 125 MLS/HR Fentanyl Citrate (Fentanyl Inj) 50 mcg Q5M PRN IV 10/05/17 08:30 10/05/17 13:30 Hydromorphone HCl (Dilaudid Inj) 0.5 mg Q5M PRN IV 10/05/17 08:30 10/05/17 13:30 Meperidine HCl (Demerol Inj) 25 mg Q5M PRN IV 10/05/17 08:30 10/05/17 13:30 Ondansetron HCl (Zofran Inj) 4 mg ONE PRN IV 10/05/17 08:30 10/05/17 13:30 Labetalol HCl (Normodyne IV) 5 mg Q5M PRN IV 10/05/17 08:30 10/05/17 13:30 Ephedrine Sulfate (EpHEDrine SULFATE INJ) 5 mg Q5M PRN IV 10/05/17 08:30 10/05/17 13:30 Atropine Sulfate (Atropine Sulfate 0.1mg/ml Inj) 0.5 mg Q1M PRN IV 10/05/17 08:30 10/05/17 13:30 Review of Systems patient seen post operatively, sedated. Physical Exam Date Time Temp Pulse Resp B/P (MAP) Pulse Ox O2 Delivery O2 Flow Rate FiO2 10/05/17 08:33 36.6 72 18 158/78 (104) 96 Room Air 10/05/17 00:00 Room Air 10/04/17 23:52 36.7 80 16 146/80 (102) 94 Room Air 10/04/17 18:30 37.0 75 16 164/86 Room Air 10/04/17 18:25 37.0 75 16 164/86 (112) 95 Room Air 10/04/17 18:07 36.8 84 16 132/79 95 10/04/17 17:57 84 16 132/79 95 Room Air 10/04/17 16:34 84 16 167/87 97 Room Air 10/04/17 13:49 36.8 75 16 174/88 97 Room Air General Appearance: no apparent distress Head: normocephalic Neck: no adenopathy Respiratory/Chest: lungs clear, normal breath sounds Cardiovascular: regular rate, rhythm, no edema, no murmur Abdomen/GI: soft, no pulsatile mass Extremities/Musculoskelatal: normal inspection, no pedal edema Neurologic/Psych: alert ( but sedated, responded to call, she understood surgery was done.) Laboratory Results Last 24 Hours Test 10/04/17 14:15 10/04/17 14:30 10/04/17 17:03 10/05/17 07:35 White Blood Count 11.92 K/uL 10.78 K/uL Red Blood Count 4.46 M/uL 4.17 M/uL Hemoglobin 13.8 g/dL 12.6 g/dL Hematocrit 40.2 % 38.1 % Mean Corpuscular Volume 90.1 fL 91.4 fL Mean Corpuscular Hemoglobin 30.9 pg 30.2 pg Mean Corpuscular Hemoglobin Concent 34.3 g/dl 33.1 g/dl Platelet Count 301 K/uL 290 K/uL Mean Platelet Volume 10.3 fL 10.1 fL Neutrophils (%) (Auto) 89.8 % Lymphocytes (%) (Auto) 6.2 % Monocytes (%) (Auto) 3.5 % Eosinophils (%) (Auto) 0.0 % Basophils (%) (Auto) 0.2 % Neutrophils # (Auto) 10.71 K/uL Lymphocytes # (Auto) 0.74 K/uL Monocytes # (Auto) 0.42 K/uL Eosinophils # (Auto) 0.00 K/uL Basophils # (Auto) 0.02 K/uL RDW Standard Deviation 44.3 fL 45.8 fL RDW Coefficient of Variation 13.4 % 13.8 % Immature Granulocyte % (Auto) 0.3 % Immature Granulocyte # (Auto) 0.03 K/uL Prothrombin Time 10.1 SECONDS Prothromb Time International Ratio 1.0 Activated Partial Thromboplast Time 27.1 SECONDS Partial Thromboplastin Ratio 1.0 Sodium Level 134 mmol/L 139 mmol/L Potassium Level 3.8 mmol/L 3.6 mmol/L Chloride Level 101 mmol/L 104 mmol/L Carbon Dioxide Level 27 mmol/L 27 mmol/L Anion Gap 6.0 mmol/L 16.0 mmol/L 8.0 mmol/L Blood Urea Nitrogen 13 mg/dl 12 mg/dl Creatinine 0.80 mg/dl 0.73 mg/dl Est Creatinine Clear Calc Drug Dose 65.3 ml/min 71.5 ml/min Estimated GFR () 88.4 98.8 Estimated GFR (Non- 76.3 85.2 BUN/Creatinine Ratio 16.6 16.6 Random Glucose 132 mg/dl 122 mg/dl Calcium Level 8.9 mg/dl 8.3 mg/dl Magnesium Level 2.0 mg/dl Total Bilirubin 0.3 mg/dl 0.3 mg/dl Direct Bilirubin < 0.1 mg/dl Aspartate Amino Transf (AST/SGOT) 12 U/L 10 U/L Alanine Aminotransferase (ALT/SGPT) 18 U/L 14 U/L Alkaline Phosphatase 85 U/L 61 U/L Total Protein 7.3 gm/dl 6.0 gm/dl Albumin 3.8 gm/dl 3.0 gm/dl Lipase 187 U/L Bedside Hemoglobin 14.3 g/dl Bedside Hematocrit 42 % Bedside Sodium 135 mEq/L Bedside Potassium 4.0 mEq/L Bedside Chloride 101 mEq/L Bedside Total CO2 24 mEq/l Bedside Blood Urea Nitrogen 13 mg/dl Bedside Creatinine 0.7 mg/dl Bedside Glucose (other) 132 mg/dl Bedside Ionized Calcium (Mago) 1.02 mmol/l Lactic Acid Level 1.0 mmol/L Globulin 3.0 gm/dl Albumin/Globulin Ratio 1.0 Hepatitis C Antibody Screen NEG Assessment & Plan 1. CT shows transition zone several cm above the terminal ileum and a lipomatous IC valve. An area of thickness of SB noted 52-55/90. Concerning for neoplasm. Distortion noted in the area of the TI and appendix and a thick walled intestinal loop. Small lymph nodes noted. Option include retrograde enteroscopy into the ileum verus laparoscopy. D/w Dr. Mcdonnell . Offered intra operative endoscopy if needed. Short duration of symptoms favors an acute process that a neoplasm. 2.Will monitor progress, if symptoms recur only should we consider additional work up including enterography and capsule endoscopy.
[2017-10-05] MEDS ORDERED: CEFAZOLIN IV 2,000 MG in DEXTROSE 5% 50ML 50 ML IV SCH (12:00)
[2017-10-05] MEDS ORDERED: SUCCINYLCHOLINE CHLORIDE 20 MG/ML 10 ML VIAL IV ONE (12:46)
[2017-10-05] MEDS: LACTATED RINGER'S 1000ML 1,000 ML IV SCH ×2 (12:55→19:50)
[2017-10-05] MEDS: CEFAZOLIN IV 2,000 MG in SYRINGE 0 ML IV SCH ×2 (13:52→21:36)
--- NOTE | 2017-10-05 14:47 | Anesthesiology Progress Note ---
Anesthesia Post Op Note Date & Time Oct 05, 2017 at 14:47 Vital Signs Pain Intensity: 0.0 Vital Signs Past 12 Hours Date Time Temp Pulse Resp B/P (MAP) Pulse Ox O2 Delivery O2 Flow Rate FiO2 10/05/17 14:00 75 16 137/74 (95) 95 Nasal Cannula 2.0 10/05/17 13:16 69 16 144/74 (97) 96 Nasal Cannula 2.0 10/05/17 12:45 36.6 64 16 140/79 (99) 91 Nasal Cannula 2.0 10/05/17 12:45 Nasal Cannula 2.0 10/05/17 12:20 36.2 67 14 154/85 95 Nasal Cannula 2 10/05/17 12:10 63 14 144/84 95 Nasal Cannula 2 10/05/17 12:00 61 14 151/91 97 Oxymask 10 10/05/17 11:50 70 14 150/92 98 Oxymask 10 10/05/17 11:43 36.5 81 14 155/87 98 Oxymask 10 10/05/17 08:33 36.6 72 18 158/78 (104) 96 Room Air 10/05/17 08:10 Room Air Notes Mental Status: alert / awake / arousable, participated in evaluation Pt Amnestic to Procedure: Yes Nausea / Vomiting: adequately controlled Pain: adequately controlled Airway Patency, RR, SpO2: stable & adequate BP & HR: stable & adequate Hydration State: stable & adequate Anesthetic Complications: no major complications apparent
--- NOTE | 2017-10-05 19:39 | Progress Note ---
Medicine Progress Note Date & Time of Visit: Oct 05, 2017 at 16:30 . Subjective Admitted yesterday with bowel obstruction. CT demonstrated acute transition distal ileum. Laparoscopic release of small bowel obstruction, enterolysis, appendectomy performed today by Dr. Mcdonnell. Doing well postoperatively. No chest pain. Mild cough; no dyspnea. No nausea or vomiting. Postop pain well-controlled. . Objective Last 8 Hrs Date Time Temp Pulse Resp B/P (MAP) Pulse Ox O2 Delivery O2 Flow Rate FiO2 10/05/17 19:18 37.3 103 20 137/78 (97) 93 Room Air 10/05/17 15:30 Room Air 10/05/17 14:54 36.8 74 16 142/71 (94) 96 Nasal Cannula 2.0 10/05/17 14:00 75 16 137/74 (95) 95 Nasal Cannula 2.0 10/05/17 13:16 69 16 144/74 (97) 96 Nasal Cannula 2.0 10/05/17 12:45 36.6 64 16 140/79 (99) 91 Nasal Cannula 2.0 10/05/17 12:45 Nasal Cannula 2.0 10/05/17 12:20 36.2 67 14 154/85 95 Nasal Cannula 2 10/05/17 12:10 63 14 144/84 95 Nasal Cannula 2 10/05/17 12:00 61 14 151/91 97 Oxymask 10 10/05/17 11:50 70 14 150/92 98 Oxymask 10 10/05/17 11:43 36.5 81 14 155/87 98 Oxymask 10 Physical Exam: General- no distress Lungs- clear; no resp distress CV- RRR, no gallop; no JVD; no pretibial edema Abdomen- quiet, soft Extremities- no cyanosis; no calf tenderness Neuro- alert Skin- warm & dry . Laboratory Results: Last 24 Hours Test 10/05/17 07:35 10/05/17 15:45 White Blood Count 10.78 K/uL Red Blood Count 4.17 M/uL Hemoglobin 12.6 g/dL Hematocrit 38.1 % Mean Corpuscular Volume 91.4 fL Mean Corpuscular Hemoglobin 30.2 pg Mean Corpuscular Hemoglobin Concent 33.1 g/dl RDW Standard Deviation 45.8 fL RDW Coefficient of Variation 13.8 % Platelet Count 290 K/uL Mean Platelet Volume 10.1 fL Sodium Level 139 mmol/L Potassium Level 3.6 mmol/L Chloride Level 104 mmol/L Carbon Dioxide Level 27 mmol/L Anion Gap 8.0 mmol/L Blood Urea Nitrogen 12 mg/dl Creatinine 0.73 mg/dl Est Creatinine Clear Calc Drug Dose 71.5 ml/min Estimated GFR () 98.8 Estimated GFR (Non- 85.2 BUN/Creatinine Ratio 16.6 Random Glucose 122 mg/dl Calcium Level 8.3 mg/dl Total Bilirubin 0.3 mg/dl Aspartate Amino Transf (AST/SGOT) 10 U/L Alanine Aminotransferase (ALT/SGPT) 14 U/L Alkaline Phosphatase 61 U/L Total Protein 6.0 gm/dl Albumin 3.0 gm/dl Globulin 3.0 gm/dl Albumin/Globulin Ratio 1.0 Hepatitis C Antibody Screen NEG Urine Color YELLOW Urine Appearance CLEAR Urine pH 6.5 Urine Specific [place] 1.017 Urine Protein NEG Urine Glucose (UA) 1+ Urine Ketones NEG Urine Occult Blood NEG Urine Nitrite NEG Urine Bilirubin NEG Urine Urobilinogen NEG Urine Leukocyte Esterase SMALL Urine WBC (Auto) 1-5 /hpf Urine RBC (Auto) 0-4 /hpf Urine Hyaline Casts (Auto) 1-5 /lpf Urine Epithelial Cells (Auto) >30 /lpf Urine Bacteria (Auto) NEG Urine Renal Epithelial Cells /lpf Assessment & Plan BOWEL OBSTRUCTION Laparoscopic release of small bowel obstruction, enterolysis, appendectomy performed today by Dr. Mcdonnell. Doing well postoperatively. Advance diet as tolerated. VTE PROPHYLAXIS SCD's. Ambulate. DISPOSITION Expected discharge to home. Medical follow-up with Dr. Wolf. . Current Inpatient Medications: Current Inpatient Medications Medications (Trade) Dose Ordered Sig/Gareth Route Start Time Stop Time Status Last Admin Dose Admin Ioversol (Optiray 320) 100 ml UD PRN IV 10/04/17 14:15 10/08/17 14:14 Acetaminophen (Tylenol Tab) 650 mg Q4H PRN PO 10/04/17 16:45 11/03/17 16:44 Polyethylene (Miralax Powder Packet) 17 gm DAILY PRN PO 10/04/17 16:45 11/03/17 16:44 Ondansetron HCl (Zofran Inj) 4 mg Q6H PRN IV 10/04/17 16:45 11/03/17 16:44 10/05/17 09:02 4 MG Morphine Sulfate (MoRPHine SULFATE INJ) 2 mg Q2HWA PRN IV 10/04/17 17:00 10/18/17 16:59 10/05/17 02:41 2 MG Magnesium Oxide (Mag-Ox Tab) 400 mg DAILY PO 10/06/17 09:00 11/05/17 08:59 Pravastatin Sodium (Pravachol Tab) 40 mg DAILY PO 10/06/17 09:00 11/05/17 08:59 Lactated Ringer's 1,000 ml @ 125 mls/hr Q8H IV 10/05/17 11:43 11/04/17 11:42 10/05/17 12:55 125 MLS/HR Morphine Sulfate (MoRPHine SULFATE INJ) 1 mg Q3H PRN IV 10/05/17 11:45 10/19/17 11:44 Acetaminophen/ Hydrocodone Bitart ([place] 5/325 Tab) 1 tab Q4H PRN PO 10/05/17 11:45 10/19/17 11:44 Morphine Sulfate (MoRPHine SULFATE INJ) 2 mg Q3H PRN IV 10/05/17 11:45 10/19/17 11:44 Acetaminophen/ Hydrocodone Bitart ([place] 5/325 Tab) 2 tab Q4H PRN PO 10/05/17 11:45 10/19/17 11:44 Morphine Sulfate (MoRPHine SULFATE INJ) 3 mg Q3H PRN IV 10/05/17 11:45 10/19/17 11:44 Ondansetron HCl (Zofran Inj) 4 mg Q6H PRN IV 10/05/17 11:45 11/04/17 11:44 Cefazolin Sodium 2000 mg/Syringe 10 ml @ 2.5 mls/min Q8H IV 10/05/17 13:00 10/05/17 21:03 10/05/17 13:52 2.5 MLS/MIN
[2017-10-05] MEDS: ACETAMINOPHEN 325 MG TAB PO PRN (21:37)
[2017-10-06] MEDS: LACTATED RINGER'S 1000ML 1,000 ML IV SCH (03:12)
[2017-10-06 03:51] VITALS: BP 172/83; PULSE 76; TEMP 37; O2SAT 95
[2017-10-06] MEDS: ACETAMINOPHEN 325 MG TAB PO PRN ×2 (03:58→14:35)
[2017-10-06 06:40] VITALS: BP 153/78
[2017-10-06 06:42] LABS: BASO % 0.2 %; BASO ABS # 0.02 K/uL (0-0.2); HEMATOCRIT 35.3 % (37-47); HEMOGLOBIN 11.8 g/dL (12.0-16.0); IG# 0.02 K/uL (0.00-0.02); LYMPH % 18.6 %; LYMPH ABS # 1.97 K/uL (1.2-3.4); MEAN CELL VOLUME 91.9 fL (80-100); MEAN CORPUSCULAR HEMOGLOBIN 30.7 pg (25-34); MEAN CORPUSCULAR HGB CONC 33.4 g/dl (32-36); MEAN PLATELET VOLUME 10.1 fL (7.4-10.4); MONO % 9.6 %; MONO ABS # 1.02 K/uL (0.11-0.59); NEUT % 71.4 %; NEUT ABS # 7.54 K/uL (1.4-6.5); PLATELET COUNT 256 K/uL (130-400); RED CELL DISTRIBUTION WIDTH CV 13.9 % (11.5-14.5); RED CELL DISTRIBUTION WIDTH SD 46.6 fL (36.4-46.3); WHITE BLOOD COUNT 10.57 K/uL (4.8-10.8)
[2017-10-06 07:09] LABS: CALCIUM 8.1 mg/dl (8.5-10.1); CREATININE 0.68 mg/dl (0.60-1.20); POTASSIUM 3.5 mmol/L (3.5-5.1)
[2017-10-06 07:56] VITALS: BP 147/93; PULSE 65; TEMP 36.8; O2SAT 95
--- NOTE | 2017-10-06 07:58 | Surgery Progress Note ---
Surgery Progress Note Date of Service Oct 06, 2017. Subjective Post OP Day: 1 + feeling well, + ambulating, + flatus, + pain controlled, No bowel movement, No nausea, No vomiting Tolerating diet- feel good this AM- abdominal pain that brought patient in is now resolved Surgical discomfort. Objective Vital Signs: Date Time Temp Pulse Resp B/P (MAP) Pulse Ox O2 Delivery O2 Flow Rate FiO2 10/06/17 06:40 153/78 (103) 10/06/17 03:51 37.0 76 14 172/83 (112) 95 Room Air 10/06/17 00:15 Room Air 10/05/17 23:40 37.1 79 16 148/77 (100) 92 Room Air 10/05/17 19:18 37.3 103 20 137/78 (97) 93 Room Air 10/05/17 15:30 Room Air 10/05/17 14:54 36.8 74 16 142/71 (94) 96 Nasal Cannula 2.0 10/05/17 14:00 75 16 137/74 (95) 95 Nasal Cannula 2.0 10/05/17 13:16 69 16 144/74 (97) 96 Nasal Cannula 2.0 10/05/17 12:45 36.6 64 16 140/79 (99) 91 Nasal Cannula 2.0 10/05/17 12:45 Nasal Cannula 2.0 10/05/17 12:20 36.2 67 14 154/85 95 Nasal Cannula 2 10/05/17 12:10 63 14 144/84 95 Nasal Cannula 2 10/05/17 12:00 61 14 151/91 97 Oxymask 10 10/05/17 11:50 70 14 150/92 98 Oxymask 10 10/05/17 11:43 36.5 81 14 155/87 98 Oxymask 10 10/05/17 08:33 36.6 72 18 158/78 (104) 96 Room Air 10/05/17 08:10 Room Air General Appearance: WD/WN, no apparent distress Head: normocephalic, atraumatic Abdomen: soft, + pertinent finding (tender at trocar sites ) Incision(s): clean, dry, intact, no erythema, no drainage, findings (Dermabond ) Laboratory Results: Results Past 24 Hours Test 10/05/17 15:45 10/06/17 06:15 Range/Units Urine Color YELLOW Urine Appearance CLEAR CLEAR Urine pH 6.5 4.5-7.5 Urine Specific [place] 1.017 1.000-1.030 Urine Protein NEG NEG Urine Glucose (UA) 1+ NEG Urine Ketones NEG NEG Urine Occult Blood NEG NEG Urine Nitrite NEG NEG Urine Bilirubin NEG NEG Urine Urobilinogen NEG NEG Urine Leukocyte Esterase SMALL NEG Urine WBC (Auto) 1-5 0-5 /hpf Urine RBC (Auto) 0-4 0-4 /hpf Urine Hyaline Casts (Auto) 1-5 0-5 /lpf Urine Epithelial Cells (Auto) >30 0-5 /lpf Urine Bacteria (Auto) NEG NEG Urine Renal Epithelial Cells 0-5 /lpf White Blood Count 10.57 4.8-10.8 K/uL Red Blood Count 3.84 4.2-5.4 M/uL Hemoglobin 11.8 12.0-16.0 g/dL Hematocrit 35.3 37-47 % Mean Corpuscular Volume 91.9 80-100 fL Mean Corpuscular Hemoglobin 30.7 25-34 pg Mean Corpuscular Hemoglobin Concent 33.4 32-36 g/dl Platelet Count 256 130-400 K/uL Mean Platelet Volume 10.1 7.4-10.4 fL Neutrophils (%) (Auto) 71.4 % Lymphocytes (%) (Auto) 18.6 % Monocytes (%) (Auto) 9.6 % Eosinophils (%) (Auto) 0.0 % Basophils (%) (Auto) 0.2 % Neutrophils # (Auto) 7.54 1.4-6.5 K/uL Lymphocytes # (Auto) 1.97 1.2-3.4 K/uL Monocytes # (Auto) 1.02 0.11-0.59 K/uL Eosinophils # (Auto) 0.00 0-0.5 K/uL Basophils # (Auto) 0.02 0-0.2 K/uL RDW Standard Deviation 46.6 36.4-46.3 fL RDW Coefficient of Variation 13.9 11.5-14.5 % Immature Granulocyte % (Auto) 0.2 % Immature Granulocyte # (Auto) 0.02 0.00-0.02 K/uL Sodium Level 142 136-145 mmol/L Potassium Level 3.5 3.5-5.1 mmol/L Chloride Level 109 98-107 mmol/L Carbon Dioxide Level 29 21-32 mmol/L Anion Gap 4.0 3-11 mmol/L Blood Urea Nitrogen 8 7-18 mg/dl Creatinine 0.68 0.60-1.20 mg/dl Est Creatinine Clear Calc Drug Dose 76.8 ml/min Estimated GFR () 104.9 Estimated GFR (Non- 90.5 BUN/Creatinine Ratio 11.6 10-20 Random Glucose 93 70-99 mg/dl Calcium Level 8.1 8.5-10.1 mg/dl Assessment & Plan POD #1- s/p Laparoscopy, Release of SBO, Enterolysis, Appendectomy with Dr. Mcdonnell Patient doing well this AM. AM labs reviewed. Afebrile. Pain controlled, tolerating diet, passing flatus. Feels that she can go home today with daughter. Ok for discharge from surgical standpoint- discharge per medicine team. Provided both written and verbal discharge instructions. Patient to follow-up with Dr Mcdonnell in the general surgery clinic in 1-2 weeks.
[2017-10-06] MEDS ORDERED: HYDR-5688 PO (07:59)
--- NOTE | 2017-10-06 08:05 | Discharge Instructions ---
Discharge Instructions Date of Service Oct 06, 2017. Admission Reason for Admission: Small Bowel Obstruction Discharge Discharge Diagnosis / Problem: Small Bowel Obstruction Discharge Goals Goal(s): Decrease discomfort, Improve function Activity Recommendations Activity Limitations: as noted below Lifting Limitations: no more than 10 pounds Exercise/Sports Limitations: until after follow-up appointment May Resume Sexual Activity: after follow-up appointment Shower/Bathe: no limitations Driving or Machine Use: resume 1 day after discharge . Instructions / Follow-Up Instructions / Follow-Up Please follow-up with Dr. Mcdonnell in the General Surgery clinic in 1-2 weeks. Office location is [address] [place] [address] [place] [address] Office phone # [phone]. Please call to make a follow-up appointment. Current Hospital Diet Patient's current hospital diet: AHA Diet (Heart Healthy) Discharge Diet Recommended Diet: Regular Diet, AHA Diet (Heart Healthy) Procedures Procedures Performed: Laparoscopy, Release of Small Bowel Obstruction, Enterolysis, Appendectomy Pending Studies Studies pending at discharge: yes List of pending studies: Pathology report. Medical Emergencies . Who to Call and When: Medical Emergencies: If at any time you feel your situation is an emergency, please call 911 immediately. . Non-Emergent Contact Non-Emergency issues call your: Primary Care Provider, Surgeon Call Non-Emergent contact if: temperature is above 101.5, your pain is not controlled, wound has increased drainage, wound has increased redness . "Provider Documentation" section prepared by Sindi Dumont. . VTE Core Measure Inpt VTE Proph given/why not?: SCD's
[2017-10-06] MEDS ORDERED: PRAVASTATIN SOD 40 MG TAB PO SCH (09:00)
[2017-10-06] MEDS ORDERED: MAGNESIUM OXIDE 400 MG TAB PO SCH (09:00)
--- NOTE | 2017-10-06 12:27 | Progress Note ---
Medicine Progress Note Date & Time of Visit: Oct 06, 2017 at 12:27 . Subjective Doing well postoperatively. No chest pain. No cough or dyspnea. Diet advanced. No nausea or vomiting. Passing flatus. Postop pain well-controlled. Performing incentive spirometry. Ambulating. . Objective Last 8 Hrs Date Time Temp Pulse Resp B/P (MAP) Pulse Ox O2 Delivery O2 Flow Rate FiO2 10/06/17 08:00 Room Air 10/06/17 07:56 36.8 65 18 147/93 (111) 95 Room Air 10/06/17 06:40 153/78 (103) Physical Exam: General- no distress Lungs- clear; no respiratory distress CV- RRR, no gallop; no JVD; no pretibial edema Abdomen- +, soft; incisions without erythema or drainage Extremities- no cyanosis; no calf tenderness Neuro- alert Skin- warm & dry . Laboratory Results: Last 24 Hours Test 10/05/17 15:45 10/06/17 06:15 Urine Color YELLOW Urine Appearance CLEAR Urine pH 6.5 Urine Specific [place] 1.017 Urine Protein NEG Urine Glucose (UA) 1+ Urine Ketones NEG Urine Occult Blood NEG Urine Nitrite NEG Urine Bilirubin NEG Urine Urobilinogen NEG Urine Leukocyte Esterase SMALL Urine WBC (Auto) 1-5 /hpf Urine RBC (Auto) 0-4 /hpf Urine Hyaline Casts (Auto) 1-5 /lpf Urine Epithelial Cells (Auto) >30 /lpf Urine Bacteria (Auto) NEG Urine Renal Epithelial Cells /lpf White Blood Count 10.57 K/uL Red Blood Count 3.84 M/uL Hemoglobin 11.8 g/dL Hematocrit 35.3 % Mean Corpuscular Volume 91.9 fL Mean Corpuscular Hemoglobin 30.7 pg Mean Corpuscular Hemoglobin Concent 33.4 g/dl Platelet Count 256 K/uL Mean Platelet Volume 10.1 fL Neutrophils (%) (Auto) 71.4 % Lymphocytes (%) (Auto) 18.6 % Monocytes (%) (Auto) 9.6 % Eosinophils (%) (Auto) 0.0 % Basophils (%) (Auto) 0.2 % Neutrophils # (Auto) 7.54 K/uL Lymphocytes # (Auto) 1.97 K/uL Monocytes # (Auto) 1.02 K/uL Eosinophils # (Auto) 0.00 K/uL Basophils # (Auto) 0.02 K/uL RDW Standard Deviation 46.6 fL RDW Coefficient of Variation 13.9 % Immature Granulocyte % (Auto) 0.2 % Immature Granulocyte # (Auto) 0.02 K/uL Sodium Level 142 mmol/L Potassium Level 3.5 mmol/L Chloride Level 109 mmol/L Carbon Dioxide Level 29 mmol/L Anion Gap 4.0 mmol/L Blood Urea Nitrogen 8 mg/dl Creatinine 0.68 mg/dl Est Creatinine Clear Calc Drug Dose 76.8 ml/min Estimated GFR () 104.9 Estimated GFR (Non- 90.5 BUN/Creatinine Ratio 11.6 Random Glucose 93 mg/dl Calcium Level 8.1 mg/dl Assessment & Plan BOWEL OBSTRUCTION Laparoscopic release of small bowel obstruction, enterolysis, appendectomy performed 10/05/[address] Mcdonnell. Doing well postoperatively. Diet advanced and tolerated. VTE PROPHYLAXIS SCD's. Ambulate. DISPOSITION Discharge to home. General Surgery follow-up with Dr. Mcdonnell. Medical follow-up with Dr. Wolf. . Current Inpatient Medications: Current Inpatient Medications Medications (Trade) Dose Ordered Sig/Gareth Route Start Time Stop Time Status Last Admin Dose Admin Ioversol (Optiray 320) 100 ml UD PRN IV 10/04/17 14:15 10/08/17 14:14 Acetaminophen (Tylenol Tab) 650 mg Q4H PRN PO 10/04/17 16:45 11/03/17 16:44 10/06/17 03:58 650 MG Polyethylene (Miralax Powder Packet) 17 gm DAILY PRN PO 10/04/17 16:45 11/03/17 16:44 Ondansetron HCl (Zofran Inj) 4 mg Q6H PRN IV 10/04/17 16:45 11/03/17 16:44 10/05/17 09:02 4 MG Morphine Sulfate (MoRPHine SULFATE INJ) 2 mg Q2HWA PRN IV 10/04/17 17:00 10/18/17 16:59 10/05/17 02:41 2 MG Magnesium Oxide (Mag-Ox Tab) 400 mg DAILY PO 10/06/17 09:00 11/05/17 08:59 10/06/17 09:29 400 MG Pravastatin Sodium (Pravachol Tab) 40 mg DAILY PO 10/06/17 09:00 11/05/17 08:59 10/06/17 09:29 40 MG Morphine Sulfate (MoRPHine SULFATE INJ) 1 mg Q3H PRN IV 10/05/17 11:45 10/19/17 11:44 Acetaminophen/ Hydrocodone Bitart ([place] 5/325 Tab) 1 tab Q4H PRN PO 10/05/17 11:45 10/19/17 11:44 Morphine Sulfate (MoRPHine SULFATE INJ) 2 mg Q3H PRN IV 10/05/17 11:45 10/19/17 11:44 Acetaminophen/ Hydrocodone Bitart ([place] 5/325 Tab) 2 tab Q4H PRN PO 10/05/17 11:45 10/19/17 11:44 Morphine Sulfate (MoRPHine SULFATE INJ) 3 mg Q3H PRN IV 10/05/17 11:45 10/19/17 11:44 Ondansetron HCl (Zofran Inj) 4 mg Q6H PRN IV 10/05/17 11:45 11/04/17 11:44
--- NOTE | 2017-10-06 14:42 | Consultant Recommendations ---
Core Worker Recommendations Date of Service Oct 06, 2017. Core Worker Recommendations Seek medical attention if you have: * temperature above 101 * chest pain or trouble breathing * abdominal pain, nausea, vomiting * diarrhea, dark stools or bloody stools * any unanswered questions or concerns Call 911 if symptoms are severe. Call if you have any questions or problems. My cell # is [phone]. You can also reach a [facility] hospitalist on duty at [facility] 24 hours a day by calling [phone]. Please take good care of yourself. Dao Garcia .
[2017-10-06 14:59] VITALS: BP 147/93; PULSE 65; TEMP 36.8; O2SAT 95
[2017-10-06 15:07] VITALS: BP 164/85; PULSE 74; TEMP 36.9; O2SAT 97
--- NOTE | 2017-10-07 08:58 | Discharge Summary ---
Discharge Summary Date of Service Oct 07, 2017. Discharge Summary Admission Date: Oct 04, 2017 at 16:29 Discharge Date: Oct 06, 2017 Discharge Disposition: Home Principal Diagnosis: small bowel obstruction . Secondary Diagnoses/Problems: Chronic and Resolved Medical Problems: (1) Dyslipidemia Status: Chronic (2) History of endometrial cancer Status: Resolved Surgical Problems: (1) History of hysterectomy Status: Resolved (2) Hx of hysterectomy Status: Resolved (3) Hx of tubal ligation Status: Resolved . Procedures: CT abdomen and pelvis IV meds IV fluids Laparoscopic release of small bowel obstruction, enterolysis, appendectomy performed 10/05/[address] Mcdonnell. . Consultations: General Surgery with Dr. Mcdonnell . Medication Reconciliation New Medications: Hydrocodone/Acetaminophen 5MG/325MG ([place] 5MG/325MG) Tab 1-2 TABLETS PO Q4 PRN for Pain for 3 Days, #30 TAB Continued Medications: Calcium Carbonate-Cholecalcife (Caltrate 600+D) 1 Tab Tab 1 TAB PO DAILY Magnesium Oxide (Mag-Ox) 400 Mg Tab 400 MG PO DAILY, TAB Melatonin (Melatonin) 5 Mg Tab 1 TAB PO HS for Insomnia Pravastatin Sodium (Pravachol) 40 Mg Tab 40 MG PO DAILY for 90 Days, #90 TAB 3 Refills Admission Information HPI (per Admitting provider): Pt is 67 y/o F with PMH dyslipidemia, endometrial CA s/p hysterectomy presented to ER with c/o abdominal pain, N/V started last night. States ate dinner last night and then later developed lower abdominal aching, nausea and couple episodes of vomiting. [place] chilled last evening. Had soft formed BM this am. No prior treatment. Denies hx bowel obstruction in past. Hx hysterectomy and tubal ligation. Denies fever, diaphoresis, hematochezia, melena, hematemesis, [place], dizziness, syncope, vision changes, neck pain, CP, SOB, orthopnea, palpitations , cough, sore throat, choking, otalgia, rhinorrhea, paresthesias, weakness, extremity weakness, extremity edema, rashes, urinary symptoms. In ER pt afebrile, P: 75, R: 16, BP: 174/88, 97% on RA. WBC: 11.9, Na: 134. pending lactic acid, pending co-ags. CT abd/pelvis: Developing small bowel obstruction with the high-grade transition point at the distal ileum. The distal ileal loop demonstrates mild surrounding inflammatory change, small amount of fluid within the right lower quadrant. Pt given morphine 4mg x 2 doses, zofran 4mg x 2 doses, ativan. NG tube placed. Surgery consulted . Physical Exam (per Admitting): General Appearance: WD/WN, no apparent distress Head: normocephalic, atraumatic Eyes: normal inspection, PERRL, EOMI, sclerae normal ENT: hearing grossly normal, pharynx normal, + pertinent finding (mucous membranes moist) Neck: supple, no JVD, trachea midline Respiratory/Chest: chest non-tender, lungs clear, normal breath sounds, no respiratory distress, no accessory muscle use Cardiovascular: regular rate, rhythm, no edema, no murmur, normal peripheral pulses Abdomen/GI: soft, + pertinent finding (quiet hypoactive BS, mild tenderness to palpation across entire lower abdomen without rebound or guarding) Back: no CVA tenderness Extremities/Musculoskelatal: normal inspection, normal capillary refill, no pedal edema, normal range of motion, non-tender Neurologic/Psych: alert, normal mood/affect, oriented x 3 Skin: normal color, warm/dry, no rash Hospital Course BOWEL OBSTRUCTION Presented with abdominal pain, nausea, vomiting. CT demonstrated small bowel obstruction with transition at distal ileum. Laparoscopic release of small bowel obstruction, enterolysis, appendectomy performed 10/05/[address] Mcdonnell. Did well postoperatively. Diet advanced and tolerated. VTE PROPHYLAXIS SCD's. Ambulate. DISPOSITION Discharge to home. General Surgery follow-up with Dr. Mcdonnell. Medical follow-up with Dr. Wolf. . Discharge Instructions Date of Service Oct 06, 2017. Admission Reason for Admission: Small Bowel Obstruction Discharge Discharge Diagnosis / Problem: Small Bowel Obstruction Discharge Goals Goal(s): Decrease discomfort, Improve function Activity Recommendations Activity Limitations: as noted below Lifting Limitations: no more than 10 pounds Exercise/Sports Limitations: until after follow-up appointment May Resume Sexual Activity: after follow-up appointment Shower/Bathe: no limitations Driving or Machine Use: resume 1 day after discharge . Instructions / Follow-Up Instructions / Follow-Up Please follow-up with Dr. Mcdonnell in the General Surgery clinic in 1-2 weeks. Office location is [address] [place], [place] [address] [address] Office phone # [phone]. Please call to make a follow-up appointment. Current Hospital Diet Patient's current hospital diet: AHA Diet (Heart Healthy) Discharge Diet Recommended Diet: Regular Diet, AHA Diet (Heart Healthy) Procedures Procedures Performed: Laparoscopy, Release of Small Bowel Obstruction, Enterolysis, Appendectomy Pending Studies Studies pending at discharge: yes List of pending studies: Pathology report. Medical Emergencies . Who to Call and When: Medical Emergencies: If at any time you feel your situation is an emergency, please call 911 immediately. . Non-Emergent Contact Non-Emergency issues call your: Primary Care Provider, Surgeon Call Non-Emergent contact if: temperature is above 101.5, your pain is not controlled, wound has increased drainage, wound has increased redness . "Provider Documentation" section prepared by Sindi Dumont. . VTE Core Measure Inpt VTE Proph given/why not?: SCD's . Additional Copies To Miquel Wolf D.O.; Thad Mcdonnell D.O.
== END 2017-10-06 15:45 | disposition home or self-care (01) | DRG 336 ==
LOC: C.EDB 13:48 → C.MSN 16:29 → ENRESERV 17:06
PROVIDERS: ADMIT Internal Medicine; ATTEND Hospitalist
PROC: 0DNJ4ZZ Release Appendix, Percutaneous Endoscopic Approach (ICD-10-PCS; principal; 2017-10-05 10:00)
PROC: 0DNU4ZZ Release Omentum, Percutaneous Endoscopic Approach (ICD-10-PCS; principal; 2017-10-05 10:00)
PROC: 0DTJ4ZZ Resection of Appendix, Percutaneous Endoscopic Approach (ICD-10-PCS; principal; 2017-10-05 10:00)
PROC: 0DN84ZZ Release Small Intestine, Percutaneous Endoscopic Approach (ICD-10-PCS; principal; 2017-10-05 10:00)
DX: K56.51 Intestinal adhesions [bands], with partial obstruction (principal); E87.1 Hypo-osmolality and hyponatremia; K36 Other appendicitis; E78.5 Hyperlipidemia, unspecified; Z85.42 Personal history of malignant neoplasm of other parts of uterus; Z90.710 Acquired absence of both cervix and uterus; Z83.3 Family history of diabetes mellitus; Z82.49 Family history of ischemic heart disease and other diseases of the circulatory system; Z80.42 Family history of malignant neoplasm of prostate